=== PATIENT | male | born 1965 | race Caucasian/White ===

== ENCOUNTER 2020-11-23 09:54 | Outpatient (CLI) | payer OTHER, SELFPAY ==
--- NOTE | 2020-11-23 | EST_ITS ---
Patient Info Name: Jesus Guerra Age: 55 years : 1965 Gender: Male Ht: 70 in Wt: 150 lbs BSA: 1.83 m2 HR: 68 bpm BP: 160 / 104 mmHg Heart Rhythm: Sinus Rhythm Exam Date: 11/23/2020 11:16 AM Exam Location: [facility] Stress Patient Status: Outpatient Admit Date: 11/23/2020 Staff Ordering Physician: Romelia Harvey MD Attending Provider: Romelia Harvey MD Exercise Technologist: Maria D Valero CT Exercise Physician: Ra Martin MD Exam Type: CA stress test treadmill w NM Study Info A nuclear stress test was performed. Summary 1. Normal sinus rhythm - normal ECG. 2. No abnormal ST/T wave changes with exercise. 3. Clinically and electrocardiographically negative exercise stress test at 86% of age predicted maximum heart rate. 4. Myocardial perfusion imaging exam to be dictated by the Radiology Department. Protocol: Gutierrez Stress ECG Details Stage: REST Duration (min): 6 min : 48 sec Speed (mph): 0.0 Grade (%): 0 HR (bpm): 67 SBP (mmHg): 160 DBP (mmHg): 104 METS: --- Stage: REST Duration (min): 12 min : 50 sec Speed (mph): 0.0 Grade (%): 0 HR (bpm): --- SBP (mmHg): 160 DBP (mmHg): 104 METS: --- Stage: STAGE 1 Duration (min): 1 min : 0 sec Speed (mph): 1.7 Grade (%): 10 HR (bpm): 96 SBP (mmHg): 160 DBP (mmHg): 104 METS: --- Stage: STAGE 1 Duration (min): 2 min : 0 sec Speed (mph): 1.7 Grade (%): 10 HR (bpm): 107 SBP (mmHg): 160 DBP (mmHg): 104 METS: --- Stage: STAGE 1 Duration (min): 3 min : 0 sec Speed (mph): 1.7 Grade (%): 10 HR (bpm): 115 SBP (mmHg): 206 DBP (mmHg): 86 METS: --- Stage: STAGE 2 Duration (min): 1 min : 0 sec Speed (mph): 2.5 Grade (%): 12 HR (bpm): 128 SBP (mmHg): 206 DBP (mmHg): 86 METS: --- Stage: STAGE 2 Duration (min): 2 min : 0 sec Speed (mph): 2.5 Grade (%): 12 HR (bpm): 141 SBP (mmHg): 212 DBP (mmHg): 93 METS: --- Stage: STAGE 2 Duration (min): 2 min : 2 sec Speed (mph): 2.5 Grade (%): 12 HR (bpm): 141 SBP (mmHg): 212 DBP (mmHg): 93 METS: --- Stage: RECOVERY Duration (min): 0 min : 57 sec Speed (mph): 0.0 Grade (%): 0 HR (bpm): 117 SBP (mmHg): 212 DBP (mmHg): 93 METS: --- Stage: RECOVERY Duration (min): 1 min : 57 sec Speed (mph): 0.0 Grade (%): 0 HR (bpm): 96 SBP (mmHg): 212 DBP (mmHg): 93 METS: --- Stage: RECOVERY Duration (min): 2 min : 57 sec Speed (mph): 0.0 Grade (%): 0 HR (bpm): 81 SBP (mmHg): 204 DBP (mmHg): 81 METS: --- Stage: RECOVERY Duration (min): 3 min : 57 sec Speed (mph): 0.0 Grade (%): 0 HR (bpm): 85 SBP (mmHg): 204 DBP (mmHg): 81 METS: --- Stage: RECOVERY Duration (min): 4 min : 13 sec Speed (mph): 0.0 Grade (
--- NOTE | ~2020-11-23 | NM_ITS ---
NM stress w perf spect multi Procedure: The patient was stressed using Modified Gutierrez protocol. Prior to the end of exercise 9.7 mCi Tc 99m IV administered. Rest imaging performed following administration of 9.2 mCi Tc 99m IV. I mages were reformatted into short axis, horizontal and vertical long axis sections for visual and dorian ntitative analysis. Indication: Precordial chest pain Comparison: None Findings: Computer assisted qualitative and quantitative analysis of the immediate and delayed images revealed normal left ventricular perfusion without evidence of fixed or reversible perfusion abnorma lity to suggest ischemia or infarction. Normal left ventricular cavity size, wall motion and ejectio n fraction. Left ventricular ejection fraction measures 61%. Impression: 1: No scintigraphic evidence of resting or stress induced perfusion abnormality. 2: Normal left ventricle ejection fraction measuring 61%. Reviewed, dictated and finalized at location A. Impression: 1: No scintigraphic evidence of resting or stress induced perfusion abnormality . 2: Normal left ventricle ejection fraction measuring 61%.
== END 2020-11-23 09:55 | disposition home or self-care (01) ==
LOC: ANHCARD 10:10
PROVIDERS: PCP Physician Assistant
DX: R07.2 Precordial pain (principal)
CPT/HCPCS: 78452; 93017; A9502

== ENCOUNTER 2021-01-17 08:05 | Outpatient (CLI) | payer OTHER, SELFPAY ==
[2021-01-17 08:46] LABS: Cholesterol 198 mg/dL (0-200); HDL Direct 52 mg/dL; Triglycerides 143 mg/dL (<150)
[2021-01-17 08:56] LABS: LDL Cholesterol Direct 104 mg/dL
== END 2021-01-17 08:06 | disposition home or self-care (01) ==
PROVIDERS: PCP Physician Assistant; Visit Provider Internal Medicine Cardiovascular Disease
DX: E78.5 Hyperlipidemia, unspecified (principal)
CPT/HCPCS: 36415; 80061

== ENCOUNTER 2021-06-12 08:03 | Outpatient (CLI) | payer OTHER, SELFPAY ==
--- NOTE | ~2021-06-12 | CT_ITS ---
EXAMINATION: CT lung screening DATE: 06/12/2021 09:47 INDICATION: Personal history of nicotine dependence, prior smoker with 40 pack year history TECHNIQUE: Computed tomography (CT) of the chest was performed without intravenous contrast. The dose -length product (DLP) was 86.00 mGy-cm. Automated exposure control and iterative reconstruction techn ique were employed. COMPARISON: None FINDINGS: There is a 2.4 x 1.4 cm thick-walled cavitary nodule of the right lung apex. 80 mm nodule i s present in the right lung apex on image 29. There is a 6 mm nodule of the right upper lobe on image 33. There is a 6 mm right upper lobe nodule on image 55. There is mild emphysema. There is fusiform enlargement of the ascending aorta. There is moderate thoracic spondylosis. IMPRESSION: 1. Lung-RADS category 4A: Findings for which additional diagnostic testing and/or tissue sampling is recommended. Given the cavitary right upper lobe nodule and multiple smaller right upper lobe nodules , PET/CT is recommended. Reviewed, dictated and finalized at location A. IMPRESSION: 1. Lung-RADS category 4A: Findings for which additional diagnostic testing and/ or tissue sampling is recommended. Given the cavitary right upper lobe nodule a nd multiple smaller right upper lobe nodules, PET/CT is recommended.
--- NOTE | 2021-06-12 13:08 | WPDPFTINT ---
PFT Procedure Performed PFT Procedure Performed Spirometry with Pre/Post Bronchodilator Plethysmography (Lung Vol) Diffusing Cap (DLCO) Flow Vol Loop PFT Interpretation This is a pulmonary function test with pre and post-bronchodilator spirometry, plethysmography and diffusing capacity. The test was performed and results interpreted in accordance with the 2019 and 2005 ATS/ERS Task Force guidelines respectively using the Global Lung Function Initiative-2012 reference equations. Patient demonstrated good effort and cooperation. Reproducibility criteria were met. The quality of the pre bronchodilator spirometry maneuver was Grade B and post bronchodilator spirometry maneuver was Grade B. Findings: Spirometry: the contour the inspiratory and expiratory flow tracing are normal. The pre bronchodilator FVC is 4.61 L, 100% predicted. The pre bronchodilator FEV1 is 3.37 L, 94% predicted. The FEV1: FVC ratio 73%. The post bronchodilator FVC is 4.94 L, representing a 7% increase. The post bronchodilator FEV1 is 3.74 L, representing an 11% increase. The post bronchodilator FEV1: FVC ratio 76%. Plethysmography: The total lung capacity is 7.33 L, 109% predicted. The functional residual capacity is 4.92 L, 141% predicted. The residual volume is 2.72 L, 130% predicted. Diffusing capacity: The diffusion capacity unadjusted for hemoglobin and carboxyhemoglobin is 19.3, 67% predicted. The diffusing capacity adjusted for alveolar volume is 3.29, 74% predicted. Impression: The spirometry is normal without evidence of an obstructive abnormality. There is no significant improvement after inhaling a single dose of albuterol. The The total lung capacity is normal with an increased functional residual capacity. This is a abnormal but nonspecific lung volume pattern. The diffusing capacity unadjusted for hemoglobin and carboxyhemoglobin is mildly decreased and normalizes when adjusted for alveolar volume. There are no prior studies for comparison
== END 2021-06-12 08:04 | disposition home or self-care (01) ==
LOC: ANHPFT 08:04
PROVIDERS: PCP Physician Assistant; Visit Provider Physician Assistant
DX: J44.9 Chronic obstructive pulmonary disease, unspecified (principal); Z12.2 Encounter for screening for malignant neoplasm of respiratory organs; Z87.891 Personal history of nicotine dependence; R91.8 Other nonspecific abnormal finding of lung field
CPT/HCPCS: 71271; 94060; 94726; 94729

== ENCOUNTER 2021-07-18 08:46 | Outpatient (CLI) | payer OTHER, SELFPAY | END 2021-07-18 08:47 | disposition home or self-care (01) | LOC: ANHAUDIO 08:47 | PROVIDERS: PCP Physician Assistant; Referring Provider Physician Assistant; Visit Provider Physician Assistant | DX: H91.93 Unspecified hearing loss, bilateral (principal) | CPT/HCPCS: 99199 ==

== ENCOUNTER 2022-02-01 08:50 | Outpatient (CLI) | payer OTHER, SELFPAY ==
--- NOTE | 2022-02-01 08:55 | ECHO_ITS ---
Patient Info Name: Jesus Guerra Age: 56 years : 1965 Gender: Male Ht: 69 in Wt: 155 lbs BSA: 1.85 m2 HR: 58 bpm BP: 150 / 92 mmHg Technical Quality: Good Exam Date: 02/01/2022 9:34 AM Exam Location: [facility] Pulmonary Patient Status: Outpatient Admit Date: 02/01/2022 Staff Ordering Physician: Venancio Petersen DO Breaker Unit Assembler: Sonia Gonzalez RDCS Attending Provider: Venancio Petersen DO Referring Physician: Nicola CISNEROS; Exam Type: CA echo doppler color flow Study Info Indications R06.00 - Dyspnea, unspecified Complete two-dimensional, color flow and Doppler transthoracic echocardiogram is performed. Summary 1. Complete two-dimensional, color flow and Doppler transthoracic echocardiogram is performed. 2. Left ventricular chamber dimension is normal. 3. Left ventricular systolic function is normal, estimated at 55-60%. 4. The left ventricular diastolic function is grade I diastolic dysfunction. 5. E/e' 3 is not elevated. 6. Global longitudinal strain is normal at -17.1%. 7. There is trace tricuspid valve regurgitation. 8. No pulmonary hypertension, estimated pulmonary arterial systolic pressure is 26 mmHg. Left Ventricle E/e' 3 is not elevated. Global longitudinal strain is normal at -17.1%. Left ventricular chamber dimension is normal. Left ventricular systolic function is normal, estimated at 55-60%. The left ventricular diastolic function is grade I diastolic dysfunction. Right Ventricle Right ventricular chamber dimension is normal. Right ventricular systolic function is normal. Left Atria Left atrial chamber dimension is normal. Right Atria Right atrial chamber dimension is normal. Aortic Valve The aortic valve is trileaflet. There is no aortic valve stenosis. There is no aortic valve regurgitation. Pulmonic Valve There is no pulmonic regurgitation. Mitral Valve There is no mitral valve stenosis. There is no mitral valve regurgitation. Tricuspid Valve There is trace tricuspid valve regurgitation. No pulmonary hypertension, estimated pulmonary arterial systolic pressure is 26 mmHg. Pericardium/Pleural There is no pericardial effusion. Inferior Vena Cava Normal inferior vena cava with >50% collapse upon inspiration consistent with normal right atrial pressure, 5 mmHg. Aorta The aortic root size at the sinus of Valsalva is normal. Left Ventricular Outflow Tract Name Value Normal LVOT 2D LVOT Diameter 2.0 cm LVOT Doppler LVOT Peak Gradient 3 mmHg LVOT Mean Gradient 1 mmHg LVOT VTI 17 cm LVOT VTI/AV VTI Ratio 1.0 LVOT Stroke Volume 54 ml LVOT CO 2.9 l/min LVOT CI 1.6 l/min/m2 Pulmonic Valve Name Value Normal RVOT Doppler
== END 2022-02-01 08:51 | disposition home or self-care (01) ==
LOC: ANHCARD 08:52
PROVIDERS: PCP Physician Assistant; Visit Provider Internal Medicine Cardiovascular Disease
DX: R06.00 Dyspnea, unspecified (principal)
CPT/HCPCS: 93306

== ENCOUNTER 2023-11-22 13:32 | Emergency (ER) | payer OTHER, SELFPAY ==
[2023-11-22 13:40] VITALS: BP 150/96; PULSE 69; RESP 16; TEMP 36.7; O2SAT 97
--- NOTE | 2023-11-22 13:47 | ED.DENTAL ---
HPI - Dental/Oral General Chief complaint: Dental/Oral Stated complaint: Dental Pain Time Seen by Provider: 11/22/23 13:47 Source: patient Mode of arrival: ambulatory Limitations: no limitations History of Present Illness HPI Narrative: 58 yo M presents with c/o L upper dental pain and swelling for the past week. Has known dental caries and broken teeth. Does not have dentist but plans to make appt with his 's dentist. All systems reviewed and negative except as noted above. Related Data Home Medications Medication Instructions Recorded Confirmed amitriptyline 50 mg tablet 50 mg PO QHS 01/16/21 11/22/23 cyclobenzaprine 10 mg tablet 10 mg PO TID 01/16/21 11/22/23 folic acid 1 mg tablet 1 mg PO DAILY 01/16/21 11/22/23 albuterol sulfate 90 mcg/actuation See Rx Instructions .Route .COMPLEX 11/22/23 11/22/23 aerosol inhaler glycopyrrolate 9 mcg-formoterol See Rx Instructions .Route .COMPLEX 11/22/23 11/22/23 4.8 mcg HFA aerosol inhaler (Bevespi Aerosphere) venlafaxine 150 mg 150 mg PO DAILY 11/22/23 11/22/23 capsule,extended release 24 hr Allergies Allergy/AdvReac Type Severity Reaction Status Date / Time No Known Allergies Allergy Mild Verified 11/22/23 13:45 Review of Systems Review of Systems: CONSTITUTIONAL: Denies fever, chills, or sweats. EYES: Denies visual changes, redness, or discharge. ENT: Denies rhinorrhea, congestion, sore throat, or otalgia. Reports left upper dental pain and swelling. CARDIOVASCULAR: Denies chest pain, palpitations, or edema. RESPIRATORY: Denies cough or dyspnea. GASTROINTESTINAL: Denies abdominal pain, nausea, vomiting, or diarrhea. GENITOURINARY: Denies dysuria or hematuria. SKIN: Denies rash or itching. MUSCULOSKELETAL: Denies back pain, joint pain, or myalgia. NEUROLOGIC: Denies headache, numbness, or weakness. PSYCHIATRIC: Denies anxiety or depression. All other systems reviewed are negative, except as documented in HPI. [facility] Social History Social History Smoking status: Former smoker Comments At time of signature, agree with nursing past medical, surgical, social and family history. There is no relevant family history pertinent to the presenting complaint. Exam Narrative: GENERAL: This is a well-nourished, well-developed patient, in no apparent distress. HEAD: normocephalic, atraumatic. EYES: PERRL. Sclera clear/white. Vision is grossly intact. EARS: External ears normal NOSE: External nose normal MOUTH: L upper teeth decayed, broken down to gumline. gums swollen and erythematous. no fluctuance concerning for abscess. NECK: Neck supple, non-tender without lymphadenopathy, masses or thyromegaly. CARDIOVASCULAR: Regular rate and rhythm without murmurs, gallops, or rubs. RESPIRATORY: Clear to auscultation. Breath sounds equal bilaterally. No wheezes, rales, or rhonchi. SKIN: warm, Dry, intact with no suspicious lesions or rash, good texture and turgor. NEURO: awake, alert, and oriented to person, place and time. There were no obvious focal neurologic abnormalities. EXTREMITIES: No joint tenderness, effusion, or edema noted. Course Course Level of Care: Express Care Visit Vital Signs Vital signs: Vital Signs Temperature 36.7 C 11/22/23 13:40 Pulse Rate 69 11/22/23 13:40 Respiratory Rate 16 11/22/23 13:40 Blood Pressure 150/96 H 11/22/23 13:40 Pulse Oximetry 97 11/22/23 13:40 Oxygen Delivery Room Air 11/22/23 13:40 Temperature 36.7 C 11/22/23 13:40 Pulse Rate 69 11/22/23 13:40 Respiratory Rate 16 11/22/23 13:40 Blood Pressure 150/96 H 11/22/23 13:40 Pulse Oximetry 97 11/22/23 13:40 Oxygen Delivery Room Air 11/22/23 13:40 Reviewed MDM - Dental/Oral MDM Narrative Medical decision making narrative: Patient is aware of diagnosis, understands and agrees to treatment plan. Anticipatory guidance given. Patient agrees to follow-up
== END 2023-11-22 14:01 | disposition home or self-care (01) ==
PROVIDERS: Emergency Provider Nurse Practitioner Family; PCP Physician Assistant
DX: K08.89 Other specified disorders of teeth and supporting structures (principal); Z87.891 Personal history of nicotine dependence; E78.00 Pure hypercholesterolemia, unspecified; I10 Essential (primary) hypertension; J44.9 Chronic obstructive pulmonary disease, unspecified; F41.9 Anxiety disorder, unspecified; Z85.118 Personal history of other malignant neoplasm of bronchus and lung; Z92.21 Personal history of antineoplastic chemotherapy
CPT/HCPCS: 99213; G0463